=== PATIENT | male | born 1960 | race African-American/Black ===

== ENCOUNTER 2017-01-20 08:22 | Outpatient (CLI) | payer OTHER ==
[2017-01-20 08:55] LABS: Hemoglobin 13.9 g/dL (14.0-18.0); Mean Corpuscular HGB CONC 33.3 g/dL (32.0-36.0); Mean Corpuscular Hemoglobin 29.4 pg (27.0-31.0); Mean Corpuscular Volume 88.5 fl (80.0-94.0); Mean Platelet Volume 8.4 fL (7.4-10.4); Platelet Count 212 thou/uL (130-400); RBC Distribution Width 14.4 % (11.5-14.5); Red Blood Cell (RBC) Count 4.71 mill/uL (4.70-6.10)
[2017-01-20 09:00] LABS: Hemoglobin A1c 6.7 % (4.0-6.0)
[2017-01-20 09:25] LABS: MDiff Complete? YES
[2017-01-20 09:27] LABS: Anisocytosis SLIGHT = 6-15 cells (100X) (0-5/hpf); Band 1 % (5-11); Eosinophils 3 % (0-10); Lymphocytes 22 % (21-51); Monocytes 9 % (0-10); Neutrophil 65 % (42-75); PLT Morphology Comment Appears Adequate
[2017-01-20 09:28] LABS: ALT (SGPT) 27 U/L (8-55); AST (SGOT) 25 U/L (5-34); Albumin 4.2 g/dL (3.5-5.0); Alkaline Phosphatase 66 U/L (40-150); Anion Gap 15 mmol/L (10-20); BUN (Urea Nitrogen) 31 mg/dL (8.4-25.7); Bilirubin, Total 0.9 mg/dL (0.2-1.2); Calc. Creatinine Clearance 0 mL/min (70-130); Calcium 9.7 mg/dL (7.8-10.44); Carbon Dioxide 19 mmol/L (22-29); Cardiac Risk 4.4 (Less than 4.5); Chloride 110 mmol/L (98-107); Cholesterol 229 mg/dl (< 200 Desired); Estimated GFR-MDRD 37; Globulin 3.7 g/dL (2.4-3.5); Glucose 81 mg/dL (70-105); HDL Cholesterol 52 mg/dL (>60 Neg Risk); LDL Cholesterol, Calculated 159 mg/dL; Potassium 3.7 mmol/L (3.5-5.1); Protein, Total 7.9 g/dL (6.0-8.3); Sodium 140 mmol/L (136-145); Triglycerides 92 mg/dL (Less than 150)
--- NOTE | 2017-01-20 09:47 | RAD ---
3 VIEWS LEFT KNEE: Date: 01/20/17 COMPARISON: None. HISTORY: Localized osteoarthritis, no trauma. FINDINGS: There is moderate degenerative change at the patellofemoral interspace with joint space narrowing, s ubchondral sclerosis, and osteophyte formation. Small nonspecific knee joint effusion. No displaced fracture or dislocation. There is moderate medial and lateral compartment degenerative change with j oint space narrowing, subchondral sclerosis, and osteophyte formation. IMPRESSION: Degenerative joint disease as described above. No acute fracture or dislocation seen. POS: DOROTHY
[2017-01-20 15:40] LABS: Thyroid Stimulating Hormone 1.9046 uIU/mL (0.35-4.94)
[2017-01-20 16:51] LABS: Vitamin D, 25 Hydroxy 24.6 ng/ml (> 30.0)
[2017-01-20 19:06] LABS: Creatinine, Urine 190.31 mg/dL (63-166); Microalbumin Urine 45.4 mg/dL (0.5-50.0); Microalbumin/Creat Ratio 238.6 mg/g (Less than 30)
== END 2017-01-20 08:23 | disposition home or self-care (01) ==
LOC: MADLABBHPM 08:22
PROVIDERS: ATTEND Family Medicine
DX: E78.2 Mixed hyperlipidemia (principal); E11.40 Type 2 diabetes mellitus with diabetic neuropathy, unspecified; I10 Essential (primary) hypertension; F17.200 Nicotine dependence, unspecified, uncomplicated; M17.12 Unilateral primary osteoarthritis, left knee
CPT/HCPCS: 36415; 80053; 80061; 82043; 82306; 83036; 84443; 85025

== ENCOUNTER 2017-06-26 08:33 | Outpatient (CLI) | payer OTHER ==
[2017-06-26 09:20] LABS: Hemoglobin A1c 7.1 % (4.0-6.0)
[2017-06-26 09:22] LABS: ALT (SGPT) 33 U/L (8-55); AST (SGOT) 28 U/L (5-34); Albumin 4.2 g/dL (3.5-5.0); Alkaline Phosphatase 69 U/L (40-150); Anion Gap 15 mmol/L (10-20); BUN (Urea Nitrogen) 30 mg/dL (8.4-25.7); Bilirubin, Total 1.2 mg/dL (0.2-1.2); Calc. Creatinine Clearance 0 mL/min (70-130); Calcium 9.6 mg/dL (7.8-10.44); Carbon Dioxide 24 mmol/L (22-29); Cardiac Risk 5.4 (Less than 4.5); Chloride 105 mmol/L (98-107); Cholesterol 242 mg/dl (< 200 Desired); Estimated GFR-MDRD 35; Globulin 3.6 g/dL (2.4-3.5); Glucose 124 mg/dL (70-105); HDL Cholesterol 45 mg/dL (>60 Neg Risk); LDL Cholesterol, Calculated 182 mg/dL; Potassium 4.5 mmol/L (3.5-5.1); Protein, Total 7.8 g/dL (6.0-8.3); Sodium 139 mmol/L (136-145); Triglycerides 75 mg/dL (Less than 150)
--- NOTE | 2017-06-26 09:54 | RAD ---
RIGHT FOOT 3 VIEWS: HISTORY: A 57-year-old male with right foot pain after hearing a pop 3 months ago. There are some degenerative changes of the right foot. No acute fracture or dislocation or signific ant malalignment. IMPRESSION: Degenerative changes without fracture or dislocation. POS: DOROTHY
== END 2017-06-26 08:34 | disposition home or self-care (01) ==
LOC: MADLABBHPM 08:33
PROVIDERS: ATTEND Family Medicine
DX: M79.672 Pain in left foot (principal); E78.2 Mixed hyperlipidemia; N18.3 Chronic kidney disease, stage 3 (moderate); E11.40 Type 2 diabetes mellitus with diabetic neuropathy, unspecified; E11.22 Type 2 diabetes mellitus with diabetic chronic kidney disease
CPT/HCPCS: 36415; 80053; 80061; 83036

== ENCOUNTER 2017-09-08 08:18 | Emergency (ER) | payer OTHER ==
[2017-09-08] MEDS ORDERED: Furosemide 40 MG/4 ML VIAL ONE (08:39)
--- NOTE | 2017-09-08 08:46 | RAD ---
CHEST ONE VIEW: Comparison: 2015 FINDINGS: Heart size is enlarged. Mild pulmonary venous congestion and pulmonary edema. No pneumothorax or effu cynthia. No acute osseous abnormality. IMPRESSION: Cardiomegaly with pulmonary edema. POS: OFF
[2017-09-08 08:50] LABS: #Basophils 0.1 thou/uL (0.0-0.2); #Eosinphils 0.2 thou/uL (0.0-0.7); #Lymphocytes 1.2 thou/uL (1.20-3.40); #Monocytes 0.5 thou/uL (0.11-0.59); #Neutrophils 4.1 thou/uL (1.40-6.50); %Basophils 0.9 % (0.0-1.0); %Eosinophils 3.9 % (0.0-10.0); %Lymphocytes 19.3 % (21.0-51.0); %Monocytes 8.1 % (0.0-10.0); %Neutrophils 67.9 % (42.0-75.0); Hemoglobin 11.8 g/dL (14.0-18.0); Mean Corpuscular HGB CONC 31.7 g/dL (32.0-36.0); Mean Corpuscular Hemoglobin 29.2 pg (27.0-31.0); Mean Corpuscular Volume 92.3 fl (80.0-94.0); Mean Platelet Volume 8.9 fL (7.4-10.4); Platelet Count 206 thou/uL (130-400); RBC Distribution Width 14.1 % (11.5-14.5); Red Blood Cell (RBC) Count 4.02 mill/uL (4.70-6.10)
[2017-09-08 09:07] LABS: ALT (SGPT) 22 U/L (8-55); AST (SGOT) 22 U/L (5-34); Albumin 3.4 g/dL (3.5-5.0); Alkaline Phosphatase 128 U/L (40-150); Anion Gap 14 mmol/L (10-20); BUN (Urea Nitrogen) 19 mg/dL (8.4-25.7); Bilirubin, Total 0.3 mg/dL (0.2-1.2); CK (CPK) 264 U/L (30-200); Calc. Creatinine Clearance 0 mL/min (70-130); Calcium 8.6 mg/dL (7.8-10.44); Carbon Dioxide 21 mmol/L (22-29); Chloride 111 mmol/L (98-107); Estimated GFR-MDRD 40; Globulin 3.4 g/dL (2.4-3.5); Glucose 232 mg/dL (70-105); Protein, Total 6.8 g/dL (6.0-8.3); Sodium 142 mmol/L (136-145)
[2017-09-08 09:08] LABS: CKMB 4.6 ng/mL (0-6.6); Troponin I 0.146 ng/mL (< 0.028)
[2017-09-08] MEDS ORDERED: Lisinopril 10 MG TAB ONE (09:21)
[2017-09-08] MEDS ORDERED: Metoprolol Tartrate 5 MG/5 ML VIAL ONE (09:21)
[2017-09-08] MEDS ORDERED: Nitroglycerin 2% Ointment 1 INCH/1 GM Packet ONE (09:36)
[2017-09-08 09:45] LABS: INR-International Normal Ratio 1.1; PTT 30.9 SEC (22.9-36.1); Prothrombin Time 14.3 SEC (12.0-14.7)
== END 2017-09-08 11:13 | disposition short-term general hospital (02) ==
LOC: MADERS 08:18
DX: J20.9 Acute bronchitis, unspecified (principal); J01.90 Acute sinusitis, unspecified; I11.0 Hypertensive heart disease with heart failure; I50.9 Heart failure, unspecified; E11.9 Type 2 diabetes mellitus without complications; E78.00 Pure hypercholesterolemia, unspecified; F17.210 Nicotine dependence, cigarettes, uncomplicated
CPT/HCPCS: 71045; 80053; 82550; 82553; 83735; 83880; 84484; 85025; 85379; 85610; 85730; 93005; 94760; 96374; 96375; J1940

== ENCOUNTER 2017-11-20 09:36 | Outpatient (CLI) | payer OTHER ==
[2017-11-20 11:44] LABS: Anion Gap 15 mmol/L (10-20); BUN (Urea Nitrogen) 30 mg/dL (8.4-25.7); Calc. Creatinine Clearance 0 mL/min (70-130); Calcium 9.6 mg/dL (7.8-10.44); Carbon Dioxide 24 mmol/L (22-29); Chloride 109 mmol/L (98-107); Estimated GFR-MDRD 32; Glucose 126 mg/dL (70-105); Potassium 4.5 mmol/L (3.5-5.1); Sodium 143 mmol/L (136-145)
[2017-11-20 18:11] LABS: Creatinine, Urine 128.32 mg/dL (63-166)
== END 2017-11-20 09:37 | disposition home or self-care (01) ==
LOC: MADLAB 09:36
PROVIDERS: ATTEND Internal Medicine Nephrology
DX: N18.3 Chronic kidney disease, stage 3 (moderate) (principal); D63.1 Anemia in chronic kidney disease; R80.9 Proteinuria, unspecified
CPT/HCPCS: 80048; 82570; 84156

== ENCOUNTER 2018-02-10 07:25 | Outpatient (CLI) | payer OTHER ==
[2018-02-10 08:02] LABS: ALT (SGPT) 33 U/L (8-55); AST (SGOT) 33 U/L (5-34); Alkaline Phosphatase 85 U/L (40-150); Anion Gap 14 mmol/L (10-20); BUN (Urea Nitrogen) 28 mg/dL (8.4-25.7); Bilirubin, Total 0.3 mg/dL (0.2-1.2); Calc. Creatinine Clearance 0 mL/min (70-130); Calcium 9.4 mg/dL (7.8-10.44); Carbon Dioxide 23 mmol/L (22-29); Cardiac Risk 6.8 (Less than 4.5); Chloride 108 mmol/L (98-107); Cholesterol 314 mg/dl (< 200 Desired); Estimated GFR-MDRD 40; Globulin 3.4 g/dL (2.4-3.5); Glucose 98 mg/dL (70-105); HDL Cholesterol 46 mg/dL (>60 Neg Risk); LDL Cholesterol, Calculated 216 mg/dL; Potassium 4.3 mmol/L (3.5-5.1); Protein, Total 7.4 g/dL (6.0-8.3); Sodium 141 mmol/L (136-145); Triglycerides 258 mg/dL (Less than 150)
[2018-02-10 12:03] LABS: Hemoglobin A1c 7.5 % (4.0-6.0)
== END 2018-02-10 07:26 ==
LOC: MADLABBHPM 07:25
PROVIDERS: ATTEND Family Medicine
DX: E11.40 Type 2 diabetes mellitus with diabetic neuropathy, unspecified (principal); E11.22 Type 2 diabetes mellitus with diabetic chronic kidney disease; E78.2 Mixed hyperlipidemia; N18.3 Chronic kidney disease, stage 3 (moderate); F17.200 Nicotine dependence, unspecified, uncomplicated
CPT/HCPCS: 36415; 80053; 80061; 83036

== ENCOUNTER 2018-05-20 15:12 | Outpatient (CLI) | payer OTHER ==
--- NOTE | 2018-05-20 17:33 | RAD ---
LEFT KNEE RADIOGRAPHS 3 VIEWS: DATE: 05/20/2018. PROVIDED CLINICAL HISTORY: Left knee pain. FINDINGS: Comparison 01/20/2017. There is no evidence for a fracture or other acute osseous abnormality. Tricom partmental osteophyte formation is demonstrated. Joint spaces appear preserved. Alignment appears a natomic. Moderate knee joint capsular distention. Bipartite patella. IMPRESSION: Degenerative arthrosis of the left knee with associated knee joint effusion, appearing similar to the comparison examination. POS: DOROTHY
== END 2018-05-20 15:13 | disposition home or self-care (01) ==
LOC: MADRAD 15:12
PROVIDERS: ATTEND Family Medicine
DX: M25.562 Pain in left knee (principal); M17.12 Unilateral primary osteoarthritis, left knee; M25.462 Effusion, left knee

== ENCOUNTER 2018-09-09 20:22 | Emergency (ER) | payer OTHER ==
[2018-09-09 20:42] LABS: Mean Corpuscular HGB CONC 31.5 g/dL (32.0-36.0); Mean Corpuscular Hemoglobin 28.7 pg (27.0-31.0); Mean Corpuscular Volume 91.3 fL (78.0-98.0); Mean Platelet Volume 9.2 fL (7.4-10.4); Platelet Count 201 thou/uL (130-400); RBC Distribution Width 14.2 % (11.5-14.5); Red Blood Cell (RBC) Count 4.18 mill/uL (4.70-6.10); White Blood Cell (WBC) Count 5.2 thou/uL (4.8-10.8)
[2018-09-09 20:54] LABS: ALT (SGPT) 54 U/L (8-55); AST (SGOT) 90 U/L (5-34); Albumin 3.8 g/dL (3.5-5.0); Alkaline Phosphatase 133 U/L (40-150); Anion Gap 13 mmol/L (10-20); Anisocytosis SLIGHT = 6-15 cells (100X) (0-5/hpf); BUN (Urea Nitrogen) 24 mg/dL (8.4-25.7); Band 2 % (5-11); Bilirubin, Total 0.6 mg/dL (0.2-1.2); Calc. Creatinine Clearance 0 mL/min (70-130); Calcium 8.8 mg/dL (7.8-10.44); Carbon Dioxide 24 mmol/L (22-29); Chloride 109 mmol/L (98-107); Eosinophils 2 % (0-10); Estimated GFR-MDRD 32; Globulin 3.2 g/dL (2.4-3.5); Glucose 328 mg/dL (70-105); Lymphocytes 27 % (21-51); MDiff Complete? YES; Manual Diff?? YES; Monocytes 8 % (0-10); Neutrophil 61 % (42-75); Platelet Morphology Comment Appears Adequate; Potassium 4.5 mmol/L (3.5-5.1); Sodium 141 mmol/L (136-145)
[2018-09-09] MEDS ORDERED: Nitroglycerin 2% Ointment 1 INCH/1 GM Packet ONE (21:05)
[2018-09-09] MEDS ORDERED: Nitroglycerin 0.4 MG TAB 1 EACH ONE (21:05)
[2018-09-09] MEDS ORDERED: Furosemide 40 MG/4 ML VIAL ONE (21:05)
[2018-09-09 21:15] LABS: CKMB 3.6 ng/mL (0-6.6)
--- NOTE | 2018-09-09 22:21 | RAD ---
PORTABLE UPRIGHT FRONTAL CHEST RADIOGRAPH: 09/09/18 COMPARISON: 09/08/17. HISTORY: Hypertension, short of breath. FINDINGS: Body habitus and portable technique limits detailed assessment, particularly of the lung bases. There is hazy density in both lung basis, right greater than left, which could signify interstitial infilt rate or could be technical in nature. There is pulmonary vascular congestion. There is no focal conso lidation, large volume, pleural effusion or evidence of pneumothorax. When compared to the prior exam ination, There is no significant interval change. IMPRESSION: Pulmonary vascular congestion with no focal consolidation or alveolar edema. No significant interval change when compared to the prior exam. POS: H
== END 2018-09-09 21:54 | disposition short-term general hospital (02) ==
LOC: MADERS 20:22
DX: I11.0 Hypertensive heart disease with heart failure (principal); I50.9 Heart failure, unspecified; E11.9 Type 2 diabetes mellitus without complications; E78.00 Pure hypercholesterolemia, unspecified; F17.210 Nicotine dependence, cigarettes, uncomplicated; Z79.899 Other long term (current) drug therapy
CPT/HCPCS: 71045; 80053; 82553; 83880; 84484; 85025; 93005; 96374; J1940

== ENCOUNTER 2019-05-28 11:51 | Emergency (ER) | payer OTHER | END 2019-05-28 12:50 | disposition home or self-care (01) | LOC: MADERS 11:51 | DX: S39.012A Strain of muscle, fascia and tendon of lower back, initial encounter (principal); I11.0 Hypertensive heart disease with heart failure; M54.42 Lumbago with sciatica, left side; I50.9 Heart failure, unspecified; M19.90 Unspecified osteoarthritis, unspecified site; E11.9 Type 2 diabetes mellitus without complications; E78.00 Pure hypercholesterolemia, unspecified; Z79.899 Other long term (current) drug therapy; X50.1XXA Overexertion from prolonged static or awkward postures, initial encounter | CPT/HCPCS: 99283 ==

== ENCOUNTER 2020-05-10 09:16 | Outpatient (CLI) | payer OTHER ==
--- NOTE | 2020-05-10 09:38 | RAD ---
XR Knee Lt 4 View STANDARD HISTORY: Osteoarthritis, left knee pain Comparison 09/13/2015 FINDINGS: No fracture or dislocation is identified. 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 Degenerative changes are present with interval worsening since 09/13/2015.
== END 2020-05-10 09:17 | disposition home or self-care (01) ==
LOC: MADRAD 09:16
PROVIDERS: ATTEND Family Medicine
DX: M17.12 Unilateral primary osteoarthritis, left knee (principal)

== ENCOUNTER 2020-12-27 20:29 | Emergency (ER) | payer OTHER ==
[2020-12-27 21:29] LABS: #Basophils 0.1 thou/uL (0.0-0.2); #Eosinphils 0.1 thou/uL (0.0-0.7); #Lymphocytes 2.2 thou/uL (1.20-3.40); #Monocytes 0.8 thou/uL (0.11-0.59); #Neutrophils 5.9 thou/uL (1.40-6.50); %Basophils 1.2 % (0.0-1.0); %Eosinophils 1.5 % (0.0-10.0); %Lymphocytes 23.8 % (21.0-51.0); %Monocytes 8.3 % (0.0-10.0); %Neutrophils 65.2 % (42.0-75.0); Hemoglobin 11.5 g/dL (14.0-18.0); Mean Corpuscular HGB CONC 31.1 g/dL (32.0-36.0); Mean Corpuscular Hemoglobin 28.8 pg (27.0-31.0); Mean Corpuscular Volume 92.5 fL (78.0-98.0); Mean Platelet Volume 8.5 fL (7.4-10.4); Platelet Count 240 thou/uL (130-400); RBC Distribution Width 16.2 % (11.5-14.5); Red Blood Cell (RBC) Count 3.99 mill/uL (4.70-6.10); White Blood Cell (WBC) Count 9.1 thou/uL (4.8-10.8)
[2020-12-27 21:35] LABS: PTT 29.8 sec (22.9-36.1); Prothrombin Time 13.5 sec (12.0-14.7)
[2020-12-27 21:47] LABS: ALT (SGPT) 22 U/L (8-55); AST (SGOT) 16 U/L (5-34); Albumin 4.1 g/dL (3.5-5.0); Alkaline Phosphatase 120 U/L (40-110); Anion Gap 17 mmol/L (10-20); BUN (Urea Nitrogen) 36 mg/dL (8.4-25.7); Bilirubin, Total 0.6 mg/dL (0.2-1.2); Calc. Creatinine Clearance 0 mL/min (70-130); Calcium 9.3 mg/dL (7.8-10.44); Carbon Dioxide 21 mmol/L (22-29); Chloride 104 mmol/L (98-107); Globulin 3.7 g/dL (2.4-3.5); Glucose 325 mg/dL (70-105); Potassium 4.6 mmol/L (3.5-5.1); Protein, Total 7.8 g/dL (6.0-8.3); Sodium 137 mmol/L (136-145)
== END 2020-12-27 22:34 | disposition home or self-care (01) ==
LOC: MADERS 20:29
DX: K91.840 Postprocedural hemorrhage of a digestive system organ or structure following a digestive system procedure (principal); I13.0 Hypertensive heart and chronic kidney disease with heart failure and stage 1 through stage 4 chronic kidney disease, or unspecified chronic kidney disease; I50.9 Heart failure, unspecified; N18.4 Chronic kidney disease, stage 4 (severe); E11.65 Type 2 diabetes mellitus with hyperglycemia; E78.00 Pure hypercholesterolemia, unspecified; M19.90 Unspecified osteoarthritis, unspecified site; E11.22 Type 2 diabetes mellitus with diabetic chronic kidney disease; F17.210 Nicotine dependence, cigarettes, uncomplicated; Z79.82 Long term (current) use of aspirin; Z79.899 Other long term (current) drug therapy; Z79.4 Long term (current) use of insulin
CPT/HCPCS: 80053; 85025; 85610; 85730; 99283

== ENCOUNTER 2021-04-11 06:32 | Emergency (ER) | payer OTHER ==
[2021-04-11] MEDS ORDERED: Ibuprofen 800 MG TAB ONE (07:24)
== END 2021-04-11 07:29 | disposition home or self-care (01) ==
LOC: MADERS 06:32
DX: H10.9 Unspecified conjunctivitis (principal); H02.841 Edema of right upper eyelid; I48.91 Unspecified atrial fibrillation; M19.90 Unspecified osteoarthritis, unspecified site; E11.9 Type 2 diabetes mellitus without complications; I11.0 Hypertensive heart disease with heart failure; I50.9 Heart failure, unspecified; E78.00 Pure hypercholesterolemia, unspecified; F17.210 Nicotine dependence, cigarettes, uncomplicated; Z79.899 Other long term (current) drug therapy; Z79.4 Long term (current) use of insulin; Z79.82 Long term (current) use of aspirin
CPT/HCPCS: 99283

== ENCOUNTER 2021-08-20 14:45 | Emergency (ER) | payer OTHER ==
[2021-08-20] MEDS ORDERED: Lactated Ringer's 1,000 ML ONE (15:18)
[2021-08-20 15:44] LABS: #Basophils 0.1 thou/uL (0.0-0.2); #Eosinphils 0.1 thou/uL (0.0-0.7); #Lymphocytes 1.4 thou/uL (1.20-3.40); #Monocytes 0.3 thou/uL (0.11-0.59); #Neutrophils 3.8 thou/uL (1.40-6.50); %Basophils 1.1 % (0.0-1.0); %Eosinophils 1.3 % (0.0-10.0); %Lymphocytes 25.1 % (21.0-51.0); %Neutrophils 66.5 % (42.0-75.0); Mean Corpuscular HGB CONC 32.1 g/dL (32.0-36.0); Mean Corpuscular Hemoglobin 28.3 pg (27.0-31.0); Mean Corpuscular Volume 88.4 fL (78.0-98.0); Mean Platelet Volume 9.8 fL (7.4-10.4); Platelet Count 221 thou/uL (130-400); RBC Distribution Width 13.2 % (11.5-14.5); Red Blood Cell (RBC) Count 4.59 mill/uL (4.70-6.10); White Blood Cell (WBC) Count 5.6 thou/uL (4.8-10.8)
[2021-08-20 15:48] LABS: INR-International Normal Ratio 0.9; PTT 26.4 sec (22.9-36.1); Prothrombin Time 12.7 sec (12.0-14.7)
[2021-08-20 15:51] LABS: D-Dimer Test 2.69 *mcg/mL (0.27-0.43)
[2021-08-20 15:56] LABS: ALT (SGPT) 19 U/L (8-55); AST (SGOT) 14 U/L (5-34); Acetaminophen Less than 6.0 mcg/mL (10.0-30.0); Albumin 3.7 g/dL (3.4-4.8); Alcohol Less than 10 mg/dL (Less than 10); Alkaline Phosphatase 296 U/L (40-110); Anion Gap 12 mmol/L (10-20); BUN (Urea Nitrogen) 22 mg/dL (8.4-25.7); Bilirubin, Total 0.2 mg/dL (0.2-1.2); CRP (Inflammatory) Less than 0.50 mg/dL (= or < 0.5); Calc. Creatinine Clearance 0 mL/min (70-130); Calcium 9.6 mg/dL (7.8-10.44); Carbon Dioxide 22 mmol/L (23-31); Chloride 106 mmol/L (98-107); Globulin 3.3 g/dL (2.4-3.5); Glucose 320 mg/dL (80-115); Lipase 182 U/L (8-78); Magnesium 2.1 mg/dL (1.6-2.6); Potassium 4.2 mmol/L (3.5-5.1); Salicylate Less than 8.0 mg/dL (15.0-30.0); Sodium 136 mmol/L (136-145)
[2021-08-20 16:39] LABS: CKMB 4.8 ng/mL (0-6.6)
[2021-08-20 16:40] LABS: Base Excess-Venous -3.4 mmol/L (-2.0 to 3.0); Bicarbonate (HCO3v) 22.7 mmol/L (22.0-28.0); CO2 Tension (PvCO2) 43.9 mmHg (42.0-51.0); Calcium, Ionized 1.24 mmol/L (1.15-1.33); Chloride 109 mmol/L (98-107); Hemoglobin - Calc 12.9 g/dL (14.0-18.0); Potassium 4.6 mmol/L (3.5-5.1); Sodium 139 mmol/L (138-145); vO2 Saturation-calc 99.5 % (60.0-85.0)
[2021-08-20] MEDS ORDERED: Enoxaparin Sodium 60 MG/0.6 ML SYRINGE ONE (16:42)
[2021-08-20 16:47] LABS: Bilirubin Negative (Negative); Blood, Urine Negative (Negative); Clarity Clear (Clear); Glucose, Urine (Dipstick) >=1000 mg/dL (Negative); Ketone, Urine Negative (Negative); Leukocyte Negative (Negative); Nitrite Negative (Negative); Protein, Urine (Dipstick) 30 mg/dL (Neg-Trace); Urobilinogen 0.2 mg/dL (Less than 2)
[2021-08-20 16:56] LABS: Bacteria/HPF Rare-Few HPF (None Seen); RBC/HPF None Seen HPF (0-3); Yeast-Budding Rare HPF (None Seen)
[2021-08-20 16:57] LABS: Mucous/LPF 1+ LPF (<2+)
[2021-08-20 16:59] LABS: Amphetamine Not Detected (NotDetected); Barbiturates Screen Not Detected (NotDetected); Benzodiazepine Screen Not Detected (NotDetected); Cocaine Metabolite Screen Detected (NotDetected); Medtox Control Line Valid? VALID (VALID); Methadone Not Detected (NotDetected); Methamphetamine Not Detected (NotDetected); Opiate Screen Not Detected (NotDetected); Oxycodone Screen Not Detected (NotDetected); Phencyclidine (PCP) Not Detected (NotDetected); THC/Cannabinoid Screen Not Detected (NotDetected); Tricyclic Screen Not Detected (NotDetected)
[2021-08-20 17:15] LABS: SARS-CoV-2 NAA Rapid Test Not Detected (NotDetected)
[2021-08-20] MEDS ORDERED: Aspirin Chewable 81 MG TAB ONE (19:23)
== END 2021-08-20 19:57 | disposition short-term general hospital (02) ==
LOC: MADERS 14:45
DX: I21.4 Non-ST elevation (NSTEMI) myocardial infarction (principal); I95.9 Hypotension, unspecified; Z20.822 Contact with and (suspected) exposure to COVID-19; I11.0 Hypertensive heart disease with heart failure; I50.9 Heart failure, unspecified; E11.9 Type 2 diabetes mellitus without complications; I48.91 Unspecified atrial fibrillation; E78.5 Hyperlipidemia, unspecified; M19.90 Unspecified osteoarthritis, unspecified site; E78.00 Pure hypercholesterolemia, unspecified; F17.210 Nicotine dependence, cigarettes, uncomplicated; Z79.82 Long term (current) use of aspirin; Z79.4 Long term (current) use of insulin; Z79.899 Other long term (current) drug therapy
CPT/HCPCS: 0240U; 36416; 71045; 80053; 80306; 80307; 81003; 81015; 82330; 82553; 82803; 83605; 83690; 83735; 84443; 84484; 85025; 85379; 85610; 85730; 86140; 87040; 93005; 94760; 96372; 36415-59; J1650; J7120

== ENCOUNTER 2022-03-07 16:21 | Emergency (ER) | payer OTHER ==
[2022-03-07] MEDS ORDERED: Ciprofloxacin 500 MG TAB ONE (18:35)
[2022-03-07] MEDS ORDERED: Lidocaine 1% PF 5 ML VIAL ONE (18:36)
[2022-03-07] MEDS ORDERED: Insulin Regular 300 UNITS/3 ML VIAL ONE (19:21)
== END 2022-03-07 19:30 | disposition home or self-care (01) ==
LOC: MADERS 16:21
DX: N49.2 Inflammatory disorders of scrotum (principal); E11.65 Type 2 diabetes mellitus with hyperglycemia; I10 Essential (primary) hypertension; I50.9 Heart failure, unspecified; I48.91 Unspecified atrial fibrillation; E78.5 Hyperlipidemia, unspecified; E78.00 Pure hypercholesterolemia, unspecified; M19.90 Unspecified osteoarthritis, unspecified site; F17.210 Nicotine dependence, cigarettes, uncomplicated; Z95.0 Presence of cardiac pacemaker; Z79.82 Long term (current) use of aspirin; Z79.4 Long term (current) use of insulin; Z79.899 Other long term (current) drug therapy
CPT/HCPCS: 36416; 55100; 87070; 87077; 87205; J1815

== ENCOUNTER 2022-04-17 10:50 | Emergency (ER) | payer OTHER ==
[~2022-04-17 10:50] MED LIST: Iopamidol 370 76% 100 ML VIAL ONE
[2022-04-17 12:15] LABS: ALT (SGPT) 23 U/L (8-55); AST (SGOT) 14 U/L (5-34); Albumin 3.7 g/dL (3.4-4.8); Alkaline Phosphatase 226 U/L (40-110); Anion Gap 17 mmol/L (10-20); BUN (Urea Nitrogen) 30 mg/dL (8.4-25.7); Bilirubin, Total 0.4 mg/dL (0.2-1.2); CRP (Inflammatory) 1.89 mg/dL (= or < 0.5); Calc. Creatinine Clearance 0 mL/min (70-130); Calcium 9.1 mg/dL (7.8-10.44); Carbon Dioxide 17 mmol/L (23-31); Chloride 97 mmol/L (98-107); Estimated GFR 23; Globulin 3.7 g/dL (2.4-3.5); Potassium 4.6 mmol/L (3.5-5.1); Protein, Total 7.4 g/dL (5.8-8.1); Sodium 126 mmol/L (136-145)
[2022-04-17 12:18] LABS: Glucose 683 mg/dL (80-115)
[2022-04-17 12:23] LABS: #Basophils 0.3 thou/uL (0.0-0.2); #Eosinphils 0.1 thou/uL (0.0-0.7); #Lymphocytes 1.5 thou/uL (1.20-3.40); #Monocytes 0.7 thou/uL (0.11-0.59); #Neutrophils 6.2 thou/uL (1.40-6.50); %Basophils 2.9 % (0.0-1.0); %Lymphocytes 17.1 % (21.0-51.0); %Monocytes 7.8 % (0.0-10.0); %Neutrophils 71.2 % (42.0-75.0); Hemoglobin 11.7 g/dL (14.0-18.0); Hypochromia SLIGHT = 6-15 cells (100X) (0-5/hpf); MDiff Complete? YES; Mean Corpuscular HGB CONC 31.3 g/dL (32.0-36.0); Mean Corpuscular Hemoglobin 28.3 pg (27.0-31.0); Mean Corpuscular Volume 90.3 fL (78.0-98.0); Mean Platelet Volume 13.4 fL (7.4-10.4); Platelet Count 148 thou/uL (130-400); Platelet Morphology Comment Appears Adequate; Red Blood Cell (RBC) Count 4.12 mill/uL (4.70-6.10); White Blood Cell (WBC) Count 8.7 thou/uL (4.8-10.8)
[2022-04-17] MEDS ORDERED: SUMAtriptan Succinate 6 MG/0.5 ML VIAL ONE (12:23)
[2022-04-17] MEDS ORDERED: Insulin Regular 300 UNITS/3 ML VIAL ONE (12:23)
[2022-04-17] MEDS ORDERED: Lactated Ringer's 2,000 ML ONE (12:23)
[2022-04-17 12:56] LABS: Base Excess-Venous -6.4 mmol/L (-2.0 to 3.0); Bicarbonate (HCO3v) 19.5 mmol/L (22.0-28.0); CO2 Tension (PvCO2) 39.4 mmHg (42.0-51.0); Calcium, Ionized 1.21 mmol/L (1.15-1.33); Chloride 98 mmol/L (98-107); Hemoglobin - Calc 13.2 g/dL (14.0-18.0); Potassium 5.1 mmol/L (3.5-5.1); Sodium 128 mmol/L (138-145); T. Carbon Dioxide 20.8 mmol/L (22.0-28.0); vO2 Saturation-calc 75.1 % (60.0-85.0)
[2022-04-17 15:49] LABS: Lactic Acid 1.4 mmol/L (0.5-2.2)
[2022-04-17 15:51] LABS: Anion Gap 15 mmol/L (10-20); BUN (Urea Nitrogen) 26 mg/dL (8.4-25.7); Calc. Creatinine Clearance 0 mL/min (70-130); Calcium 9.1 mg/dL (7.8-10.44); Carbon Dioxide 19 mmol/L (23-31); Chloride 99 mmol/L (98-107); Estimated GFR 26; Glucose 521 mg/dL (80-115); Potassium 4.6 mmol/L (3.5-5.1); Sodium 128 mmol/L (136-145)
[2022-04-17 15:59] LABS: Base Excess-Venous -4.2 mmol/L (-2.0 to 3.0); Bicarbonate (HCO3v) 20.5 mmol/L (22.0-28.0); CO2 Tension (PvCO2) 35.8 mmHg (42.0-51.0); Calcium, Ionized 1.17 mmol/L (1.15-1.33); Chloride 99 mmol/L (98-107); Hemoglobin - Calc 13.2 g/dL (14.0-18.0); Potassium 4.4 mmol/L (3.5-5.1); Sodium 132 mmol/L (138-145); T. Carbon Dioxide 21.6 mmol/L (22.0-28.0); vO2 Saturation-calc 99.8 % (60.0-85.0)
[2022-04-17] MEDS ORDERED: Sulfameth/Trimethoprim DS 800-160mg TAB ONE (16:55)
[2022-04-17] MEDS ORDERED: Cephalexin 500 MG CAP ONE (16:55)
== END 2022-04-17 17:05 | disposition home or self-care (01) ==
LOC: MADERS 10:50
DX: L03.315 Cellulitis of perineum (principal); L03.314 Cellulitis of groin; E11.65 Type 2 diabetes mellitus with hyperglycemia; I48.91 Unspecified atrial fibrillation; I11.0 Hypertensive heart disease with heart failure; I50.9 Heart failure, unspecified; M19.90 Unspecified osteoarthritis, unspecified site; E78.00 Pure hypercholesterolemia, unspecified; F17.210 Nicotine dependence, cigarettes, uncomplicated; Z79.82 Long term (current) use of aspirin; Z79.4 Long term (current) use of insulin; Z79.899 Other long term (current) drug therapy
CPT/HCPCS: 36415; 36416; 72192; 74177; 80053; 82010; 82330; 82550; 82803; 83605; 85025; 86140; 87040; 96360; 96361; J1815; J3030; J7120; Q9967

== ENCOUNTER 2022-08-06 17:01 | Outpatient (CLI) | payer OTHER | END 2022-08-06 17:02 | disposition home or self-care (01) | LOC: MADRAD 17:01 | PROVIDERS: ATTEND Internal Medicine | DX: J45.50 Severe persistent asthma, uncomplicated (principal); I51.7 Cardiomegaly | CPT/HCPCS: 71046 ==

== ENCOUNTER 2022-08-20 14:32 | Emergency (ER) | payer OTHER ==
[2022-08-20] MEDS ORDERED: predniSONE 20 MG TAB ONE (15:21)
[2022-08-20] MEDS ORDERED: Albuterol 200 PUFF (6.7GM INHALER) ONE (15:21)
== END 2022-08-20 15:45 | disposition home or self-care (01) ==
LOC: MADERS 14:32
DX: J20.9 Acute bronchitis, unspecified (principal); I11.0 Hypertensive heart disease with heart failure; I50.9 Heart failure, unspecified; E11.9 Type 2 diabetes mellitus without complications; E78.5 Hyperlipidemia, unspecified; E78.00 Pure hypercholesterolemia, unspecified; F17.210 Nicotine dependence, cigarettes, uncomplicated; Z79.899 Other long term (current) drug therapy; Z79.82 Long term (current) use of aspirin; Z79.4 Long term (current) use of insulin; Z79.01 Long term (current) use of anticoagulants
CPT/HCPCS: 71046; 93005; J7512